=== PATIENT | male | born 1990 | race Caucasian/White ===

== ENCOUNTER 2025-05-21 16:25 | Emergency (ER) | payer OTHER ==
[~2025-05-21] VITALS: Ht 185.4 cm; Wt 70.3 kg
[2025-05-21 16:33] VITALS: BP 127/80
[2025-05-21 18:08] LABS: PLATELET COUNT (AUTO) 243 K/uL (152-348); RED BLOOD CELL COUNT(AUTO) 4.55 MIL/uL (4.06-5.63); RED CELL DISTRIBUTION WIDTH 14.0 % (12.1-16.2); WHITE BLOOD COUNT (AUTO) 12.1 K/uL (3.6-10.2)
[2025-05-21 18:16] LABS: CREATININE 1.0 mg/dL (0.6-1.3); SODIUM SERUM 138 mmol/L (136-145); UREA NITROGEN, BLOOD 14 mg/dL (7-18)
[2025-05-21 18:21] LABS: ASPARTATE AMINOTRANSFERASE 13 U/L (15-37); TOTAL PROTEIN, SERUM 7.2 g/dL (6.4-8.2)
[2025-05-21 18:36] LABS: *MONOTEST NEGATIVE (NEGATIVE)
[2025-05-21 19:01] VITALS: BP 118/77; O2SAT 98
== END 2025-05-21 19:02 | disposition home or self-care (01) ==
LOC: ER 16:32
DX: R53.1 Weakness (principal); R55 Syncope and collapse; E86.0 Dehydration; Z20.822 Contact with and (suspected) exposure to COVID-19; Z88.6 Allergy status to analgesic agent
CPT/HCPCS: 36415; 84484; 85025; 85730; 86308; A4606; A4663